=== PATIENT | male | born 1965 | race African-American/Black ===

== ENCOUNTER 2023-08-12 09:19 | Inpatient (IN) | payer OTHER ==
[~2023-08-12 09:19] MED LIST: CEFAZOLIN 2 GM VIAL ONE; Sodium Chloride 0.9% 100 ML BAG ONE; TETANUS AND DIPHTHERIA TOX/PF 0.5 ML DISP.SYRIN ONE
[2023-08-12] MEDS ORDERED: fentaNYL 50 mcg/mL 1 mL Vial ONE ×2 (09:21→10:39)
[2023-08-12] MEDS ORDERED: Calcium Chloride 1 GM/10 ML Abboject SYRINGE ONE (09:22)
[2023-08-12] MEDS ORDERED: Rocuronium Bromide 10 MG/ML (10ML VIAL) ONE ×3 (09:22→12:00)
[2023-08-12] MEDS ORDERED: Etomidate 40 MG (20 mL) VIAL ONE (09:22)
[2023-08-12 09:32] LABS: #Eosinphils 0.1 thou/uL (0.0-0.7); #Monocytes 0.5 thou/uL (0.11-0.59); %Basophils 0.3 % (0.0-1.0); %Eosinophils 0.6 % (0.0-10.0); %Lymphocytes 13.2 % (21.0-51.0); %Monocytes 5.4 % (0.0-10.0); %Neutrophils 79.4 % (42.0-75.0); Hematocrit 40.4 % (42.0-52.0); Hemoglobin 12.6 g/dL (14.0-18.0); Mean Corpuscular HGB CONC 31.2 g/dL (32.0-36.0); Mean Corpuscular Hemoglobin 32.2 pg (27.0-31.0); Mean Corpuscular Volume 103.3 fl (78.0-98.0); Mean Platelet Volume 9.5 fL (7.4-10.4); Platelet Count 198 10x3/uL (130-400); RBC Distribution Width 12.8 % (11.5-14.5); Red Blood Cell (RBC) Count 3.91 mill/uL (4.70-6.10); White Blood Cell (WBC) Count 10.1 10x3/uL (4.8-10.8)
[2023-08-12 09:48] LABS: ALT (SGPT) 11 U/L (8-55); AST (SGOT) 31 U/L (5-34); Albumin 3.8 g/dL (3.5-5.0); Alkaline Phosphatase 63 U/L (40-110); Anion Gap 14 mmol/L (10-20); BUN (Urea Nitrogen) 10 mg/dL (8.4-25.7); CK (CPK) 509 U/L (30-200); Calc. Creatinine Clearance 0 mL/min (70-130); Calcium 8.7 mg/dL (7.8-10.44); Carbon Dioxide 19 mmol/L (22-29); Chloride 109 mmol/L (98-107); Estimated GFR 62; Globulin 2.4 g/dL (2.4-3.5); Glucose 141 mg/dL (70-105); Potassium 4.2 mmol/L (3.5-5.1); Protein, Total 6.2 g/dL (6.0-8.3); Sodium 138 mmol/L (136-145)
[2023-08-12] MEDS ORDERED: Ondansetron PF 4 MG/2 ML Vial ONE (09:58)
[2023-08-12] MEDS ORDERED: Lidocaine 1% PF 5 ML VIAL ONE (09:58)
[2023-08-12] MEDS ORDERED: PROPOFOL 40 ML ONE (09:58)
[2023-08-12] MEDS ORDERED: fentaNYL PF 100 MCG/2 ML SYRINGE ONE (09:58)
[2023-08-12] MEDS ORDERED: SUGAMMADEX SODIUM 200 MG/2 ML VIAL ONE (09:58)
[2023-08-12] MEDS ORDERED: Dexamethasone 4 mg/ml Vial ONE (09:58)
[2023-08-12 10:00] LABS: INR-International Normal Ratio 1.2; PTT 34.3 sec (22.9-36.1); Prothrombin Time 15.7 sec (12.0-14.7)
[2023-08-12] MEDS ORDERED: Albumin 5% 500 ML ONE (10:00)
[2023-08-12] MEDS ORDERED: Vasopressin 20 UNITS/ML VIAL ONE (10:00)
[2023-08-12] MEDS ORDERED: Mannitol 12.5 GM/50 ML ONE (10:00)
[2023-08-12 10:05] LABS: Troponin I 0.016 ng/mL (< 0.028)
[2023-08-12] MEDS ORDERED: Sterile Water 20 ML ONE (10:08)
[2023-08-12 10:11] LABS: Actual Bicarbonate (HCO3a) 17.8 mEq/L (22-28); Analyzer IN Cardio ER; Base Excess (BEa) -5.9 mEq/L (-2.0 to +3.0); CO2 Tension 29.4 mmHg (35.0-45.0); Calcium, Ionized (arterial) 0.96 mmol/L (1.12-1.30); Hematocrit-ABG 36 % (42.0-52.0); Hemoglobin (Hb) 12.1 g/dL (14.0-18.0); O2 Tension (PaO2), arterial 271.3 mmHg (> 80.0); pH, Arterial 7.399 (7.35-7.45)
[2023-08-12] MEDS ORDERED: NOREPINEPHRINE 8 MG/250 ML-D5W 0 ML ONE (10:11)
[2023-08-12] MEDS ORDERED: Phenylephrine 10 MG/ML VIAL ONE (10:11)
[2023-08-12] MEDS ORDERED: ePHEDrine Sulfate 50 MG/10 ML VIAL ONE ×2 (10:12→12:25)
[2023-08-12 10:14] LABS: Puncture Site Right Radial
[2023-08-12] MEDS ORDERED: Labetalol HCl 100 MG/20 ML VIAL ONE (10:46)
[2023-08-12] MEDS ORDERED: Dextrose 5% in Water 1,000 ML IV PRN (10:55)
[2023-08-12] MEDS ORDERED: Glucagon 1 MG/ML KIT IM PRN (10:55)
[2023-08-12] MEDS ORDERED: Dextrose 50% Abboject 50 ML SYRINGE SLOW IVP PRN (10:55)
[2023-08-12] MEDS ORDERED: Acetaminophen 650 MG Suppository PR PRN (11:07)
[2023-08-12] MEDS ORDERED: Ondansetron ODT 4 MG TAB PO PRN (11:07)
[2023-08-12] MEDS ORDERED: Naloxone HCl 0.4 mg/ml Vial IVP PRN (11:07)
[2023-08-12] MEDS ORDERED: Ondansetron PF 4 MG/2 ML Vial IVP PRN (11:07)
[2023-08-12] MEDS ORDERED: Morphine 2 MG/ML VIAL SLOW IVP PRN (11:07)
[2023-08-12] MEDS ORDERED: Lidocaine 1% w/Epinephrine 1:100K 20 ML VIAL ONE (11:29)
[2023-08-12] MEDS ORDERED: Lidocaine 2% PF 5 ML VIAL ONE (11:29)
[2023-08-12] MEDS ORDERED: Fentanyl 100 MCG/2 ML VIAL ONE (11:35)
[2023-08-12] MEDS ORDERED: Midazolam HCl 2 mg/2 ml Vial ONE (12:00)
[2023-08-12 12:24] LABS: Lactic Acid 5.3 mmol/L (0.5-2.2)
[2023-08-12] MEDS ORDERED: CEFAZOLIN 1 GM VIAL ONE (12:41)
[2023-08-12] MEDS ORDERED: Bacitracin Zinc Ointment 30 gm TUBE ONE (12:56)
[2023-08-12] MEDS ORDERED: Iopamidol-370 76% 500 ML MDV (1 ML CHARGE) ONE (13:02)
[2023-08-12] MEDS: Lactated Ringer's 1,000 ML IV SCH ×2 (16:09→19:10)
[2023-08-12 16:55] LABS: ALT (SGPT) 17 U/L (8-55); AST (SGOT) 55 U/L (5-34); Albumin 3.8 g/dL (3.5-5.0); Alkaline Phosphatase 62 U/L (40-110); Anion Gap 19 mmol/L (10-20); BUN (Urea Nitrogen) 11 mg/dL (8.4-25.7); Bilirubin, Total 1.4 mg/dL (0.2-1.2); CK (CPK) 2432 U/L (30-200); Calc. Creatinine Clearance 65 mL/min (70-130); Calcium 9.2 mg/dL (7.8-10.44); Carbon Dioxide 17 mmol/L (22-29); Chloride 108 mmol/L (98-107); Estimated GFR 59; Globulin 2.3 g/dL (2.4-3.5); Glucose 87 mg/dL (70-105); Potassium 4.6 mmol/L (3.5-5.1); Protein, Total 6.1 g/dL (6.0-8.3); Sodium 139 mmol/L (136-145)
[2023-08-12 16:57] LABS: #Monocytes 1.9 thou/uL (0.11-0.59); #Neutrophils 16.1 thou/uL (1.40-6.50); %Basophils 0.2 % (0.0-1.0); %Eosinophils 0.1 % (0.0-10.0); %Lymphocytes 9.7 % (21.0-51.0); %Monocytes 9.3 % (0.0-10.0); %Neutrophils 80.2 % (42.0-75.0); Hematocrit 38.1 % (42.0-52.0); Hemoglobin 12.6 g/dL (14.0-18.0); Mean Corpuscular HGB CONC 33.1 g/dL (32.0-36.0); Mean Corpuscular Hemoglobin 31.3 pg (27.0-31.0); Mean Platelet Volume 9.9 fL (7.4-10.4); Platelet Count 174 10x3/uL (130-400); RBC Distribution Width 14.8 % (11.5-14.5); Red Blood Cell (RBC) Count 4.02 mill/uL (4.70-6.10)
[2023-08-12 17:02] LABS: White Blood Cell (WBC) Count 20.1 10x3/uL (4.8-10.8)
[2023-08-12 17:03] LABS: Mean Corpuscular Volume 94.8 fl (78.0-98.0)
[2023-08-12 17:09] LABS: Critical Call Chem-Lactate ICU.WS @1709; Lactic Acid 7.5 mmol/L (0.5-2.2)
[2023-08-12] MEDS ORDERED: Ventilator Sedation Protocol 1 EACH FS SCH (17:19)
[2023-08-12] MEDS ORDERED: Fentanyl BOLUS 250 ML IVPB PRN (17:30)
[2023-08-12] MEDS ORDERED: Propofol BOLUS 1,000 MG/100 ML VIAL IV PRN (17:30)
[2023-08-12] MEDS ORDERED: DISCONTINUE PREVIOUS NARCOTIC PAIN MEDICATIONS AND BENZODIAZEPINES FS SCH (17:30)
[2023-08-12] MEDS: Morphine 2 MG/ML VIAL SLOW IVP PRN (18:43)
[2023-08-12] MEDS: Fentanyl CADD 100 ML IV SCH (19:07)
[2023-08-12 20:22] LABS: ALT (SGPT) 17 U/L (8-55); AST (SGOT) 69 U/L (5-34); Albumin 3.8 g/dL (3.5-5.0); Alkaline Phosphatase 62 U/L (40-110); Anion Gap 17 mmol/L (10-20); BUN (Urea Nitrogen) 13 mg/dL (8.4-25.7); Bilirubin, Total 1.6 mg/dL (0.2-1.2); Calc. Creatinine Clearance 58 mL/min (70-130); Calcium 9.4 mg/dL (7.8-10.44); Carbon Dioxide 18 mmol/L (22-29); Chloride 105 mmol/L (98-107); Estimated GFR 51; Globulin 2.5 g/dL (2.4-3.5); Glucose 80 mg/dL (70-105); Potassium 4.2 mmol/L (3.5-5.1); Protein, Total 6.3 g/dL (6.0-8.3); Sodium 136 mmol/L (136-145)
[2023-08-12 20:24] LABS: Lactic Acid 7.9 mmol/L (0.5-2.2)
[2023-08-12] MEDS: Sodium Chloride 0.9% 500 ML IV SCH (21:19)
[2023-08-12] MEDS: Lorazepam 2 MG/ML VIAL SLOW IVP PRN (21:19)
[2023-08-12] MEDS: Famotidine/PF 20 mg/2ml Vial SLOW IVP SCH (21:29)
[2023-08-12 21:49] LABS: Actual Bicarbonate (HCO3a) 20.3 mEq/L (22-28); Base Excess (BEa) -2.5 mEq/L (-2.0 to +3.0); CO2 Tension 28.5 mmHg (35.0-45.0); Calcium, Ionized (arterial) 1.14 mmol/L (1.12-1.30); Carboxyhemoglobin (COHb) 0.4 gm% (0.0-3.0); Hematocrit-ABG 31 % (42.0-52.0); Hemoglobin (Hb) 10.7 g/dL (14.0-18.0); O2 Tension (PaO2), arterial 92.9 mmHg (> 80.0); Potassium - ABG Lab 3.59 mmol/L (3.70-5.30)
[2023-08-12 21:51] LABS: ALV-art Gradient 227.975 mmHg (0-20); Puncture Site LRA
[2023-08-12 21:55] LABS: Hematocrit 32.2 % (42.0-52.0); Hemoglobin 10.8 g/dL (14.0-18.0); Mean Corpuscular HGB CONC 33.5 g/dL (32.0-36.0); Mean Corpuscular Volume 95.3 fl (78.0-98.0); Mean Platelet Volume 9.9 fL (7.4-10.4); Platelet Count 137 10x3/uL (130-400); RBC Distribution Width 15.3 % (11.5-14.5); Red Blood Cell (RBC) Count 3.38 mill/uL (4.70-6.10); White Blood Cell (WBC) Count 12.6 10x3/uL (4.8-10.8)
[2023-08-12] MEDS: NOREPINEPHRINE 8 MG/250 ML-D5W 250 ML ONE (23:35)
[2023-08-13] MEDS: NOREPINEPHRINE 8 MG/250 ML-D5W 250 ML IVPB SCH (00:19)
[2023-08-13] MEDS ORDERED: Sodium Chloride 0.9% 1,000 ML IV SCH (01:15)
[2023-08-13] MEDS: NOREPINEPHRINE 8 MG/250 ML-D5W 250 ML ONE (01:20)
[2023-08-13 02:05] LABS: #Monocytes 1.2 thou/uL (0.11-0.59); #Neutrophils 9.4 thou/uL (1.40-6.50); %Basophils 0.2 % (0.0-1.0); %Eosinophils 0.1 % (0.0-10.0); %Lymphocytes 10.4 % (21.0-51.0); Hematocrit 32.1 % (42.0-52.0); Mean Corpuscular HGB CONC 34.3 g/dL (32.0-36.0); Mean Corpuscular Hemoglobin 31.1 pg (27.0-31.0); Mean Platelet Volume 9.8 fL (7.4-10.4); Platelet Count 151 10x3/uL (130-400); RBC Distribution Width 15.8 % (11.5-14.5); Red Blood Cell (RBC) Count 3.54 mill/uL (4.70-6.10); White Blood Cell (WBC) Count 11.9 10x3/uL (4.8-10.8)
[2023-08-13 02:15] LABS: Mean Corpuscular Volume 90.7 fl (78.0-98.0)
[2023-08-13 02:47] LABS: ALT (SGPT) 14 U/L (8-55); AST (SGOT) 62 U/L (5-34); Albumin 3.1 g/dL (3.5-5.0); Alkaline Phosphatase 51 U/L (40-110); Anion Gap 15 mmol/L (10-20); BUN (Urea Nitrogen) 17 mg/dL (8.4-25.7); Bilirubin, Total 1.6 mg/dL (0.2-1.2); CK (CPK) 2734 U/L (30-200); Calc. Creatinine Clearance 55 mL/min (70-130); Calcium 8.5 mg/dL (7.8-10.44); Carbon Dioxide 19 mmol/L (22-29); Chloride 111 mmol/L (98-107); Estimated GFR 48; Globulin 2.1 g/dL (2.4-3.5); Glucose 122 mg/dL (70-105); Potassium 3.8 mmol/L (3.5-5.1); Protein, Total 5.2 g/dL (6.0-8.3); Sodium 141 mmol/L (136-145)
[2023-08-13 05:17] LABS: Hematocrit 32.2 % (42.0-52.0); Mean Corpuscular HGB CONC 34.2 g/dL (32.0-36.0); Mean Corpuscular Volume 90.7 fl (78.0-98.0); Mean Platelet Volume 9.7 fL (7.4-10.4); Platelet Count 151 10x3/uL (130-400); RBC Distribution Width 15.8 % (11.5-14.5); Red Blood Cell (RBC) Count 3.55 mill/uL (4.70-6.10); White Blood Cell (WBC) Count 12.9 10x3/uL (4.8-10.8)
[2023-08-13 11:10] LABS: Magnesium 1.6 mg/dL (1.6-2.6)
[2023-08-14] MEDS: Propofol 1,000 MG/100 ML VIAL IV PRN (01:00)
[2023-08-14 05:38] LABS: ALT (SGPT) 13 U/L (8-55); AST (SGOT) 49 U/L (5-34); Albumin 2.7 g/dL (3.5-5.0); Alkaline Phosphatase 39 U/L (40-110); Anion Gap 11 mmol/L (10-20); BUN (Urea Nitrogen) 18 mg/dL (8.4-25.7); Bilirubin, Total 1.3 mg/dL (0.2-1.2); Calc. Creatinine Clearance 58 mL/min (70-130); Calcium 7.7 mg/dL (7.8-10.44); Carbon Dioxide 22 mmol/L (22-29); Chloride 111 mmol/L (98-107); Estimated GFR 48; Glucose 112 mg/dL (70-105); Potassium 3.7 mmol/L (3.5-5.1); Protein, Total 4.7 g/dL (6.0-8.3); Sodium 140 mmol/L (136-145)
[2023-08-14 06:23] LABS: #Monocytes 0.9 thou/uL (0.11-0.59); #Neutrophils 6.3 thou/uL (1.40-6.50); %Basophils 0.2 % (0.0-1.0); %Eosinophils 0.2 % (0.0-10.0); %Lymphocytes 12.5 % (21.0-51.0); %Monocytes 11.2 % (0.0-10.0); %Neutrophils 75.5 % (42.0-75.0); Hematocrit 27.2 % (42.0-52.0); Hemoglobin 8.6 g/dL (14.0-18.0); Mean Corpuscular HGB CONC 31.6 g/dL (32.0-36.0); Mean Corpuscular Hemoglobin 30.2 pg (27.0-31.0); Mean Corpuscular Volume 95.4 fl (78.0-98.0); Mean Platelet Volume 10.2 fL (7.4-10.4); Platelet Count 94 10x3/uL (130-400); RBC Distribution Width 15.9 % (11.5-14.5); Red Blood Cell (RBC) Count 2.85 mill/uL (4.70-6.10); White Blood Cell (WBC) Count 8.3 10x3/uL (4.8-10.8)
[2023-08-14] MEDS: Acetaminophen 325 MG TAB PO PRN (08:05)
[2023-08-14] MEDS ORDERED: Dexmedetomidine In 0.9 % NaCl 100 ML IVPB SCH (11:00)
[2023-08-15 05:56] LABS: #Monocytes 0.9 thou/uL (0.11-0.59); #Neutrophils 4.4 thou/uL (1.40-6.50); %Basophils 0.2 % (0.0-1.0); %Eosinophils 0.3 % (0.0-10.0); %Lymphocytes 11.1 % (21.0-51.0); %Monocytes 15.5 % (0.0-10.0); %Neutrophils 72.4 % (42.0-75.0); Hematocrit 23.3 % (42.0-52.0); Hemoglobin 7.8 g/dL (14.0-18.0); Mean Corpuscular HGB CONC 33.5 g/dL (32.0-36.0); Mean Corpuscular Hemoglobin 31.2 pg (27.0-31.0); Mean Corpuscular Volume 93.2 fl (78.0-98.0); Mean Platelet Volume 10.4 fL (7.4-10.4); Platelet Count 83 10x3/uL (130-400); RBC Distribution Width 15.1 % (11.5-14.5); White Blood Cell (WBC) Count 6.1 10x3/uL (4.8-10.8)
[2023-08-15 06:20] LABS: ALT (SGPT) 12 U/L (8-55); AST (SGOT) 43 U/L (5-34); Albumin 2.6 g/dL (3.5-5.0); Alkaline Phosphatase 38 U/L (40-110); Anion Gap 12 mmol/L (10-20); BUN (Urea Nitrogen) 16 mg/dL (8.4-25.7); Bilirubin, Total 1.5 mg/dL (0.2-1.2); Calc. Creatinine Clearance 82 mL/min (70-130); Calcium 7.9 mg/dL (7.8-10.44); Carbon Dioxide 20 mmol/L (22-29); Chloride 112 mmol/L (98-107); Estimated GFR 70; Globulin 2.3 g/dL (2.4-3.5); Glucose 97 mg/dL (70-105); Potassium 3.6 mmol/L (3.5-5.1); Protein, Total 4.9 g/dL (6.0-8.3); Sodium 140 mmol/L (136-145)
[2023-08-15 13:39] LABS: #Neutrophils 4.8 thou/uL (1.40-6.50); %Basophils 0.3 % (0.0-1.0); %Eosinophils 0.3 % (0.0-10.0); %Lymphocytes 9.8 % (21.0-51.0); %Monocytes 15.6 % (0.0-10.0); %Neutrophils 73.5 % (42.0-75.0); Hematocrit 27.1 % (42.0-52.0); Hemoglobin 8.7 g/dL (14.0-18.0); Mean Corpuscular HGB CONC 32.1 g/dL (32.0-36.0); Mean Corpuscular Hemoglobin 30.3 pg (27.0-31.0); Mean Corpuscular Volume 94.4 fl (78.0-98.0); Mean Platelet Volume 10.2 fL (7.4-10.4); RBC Distribution Width 14.9 % (11.5-14.5); Red Blood Cell (RBC) Count 2.87 mill/uL (4.70-6.10); White Blood Cell (WBC) Count 6.5 10x3/uL (4.8-10.8)
[2023-08-15 13:40] LABS: Platelet Count 85 10x3/uL (130-400)
[2023-08-15] MEDS: Ampicillin/Sulbactam 3 GM in Sodium Chloride 0.9% 100 ML IVPB SCH (14:30)
[2023-08-15] MEDS: Lactated Ringer's 1,000 ML IV SCH (16:11)
[2023-08-15 20:25] LABS: Platelet Count 94 10x3/uL (130-400)
[2023-08-15 20:38] LABS: Fibrinogen 537 mg/dL (253-463)
[2023-08-15 20:39] LABS: INR-International Normal Ratio 1.4; PTT 49.6 sec (22.9-36.1); Prothrombin Time 16.9 sec (12.0-14.7)
[2023-08-15] MEDS: Metoprolol Tartrate 25 MG TAB PO SCH (20:46)
[2023-08-16 04:47] LABS: Hematocrit 20.6 % (42.0-52.0); Manual Diff?? YES; Mean Corpuscular Hemoglobin 31.4 pg (27.0-31.0); Mean Corpuscular Volume 92.4 fl (78.0-98.0); Platelet Count 99 10x3/uL (130-400); RBC Distribution Width 14.6 % (11.5-14.5); Red Blood Cell (RBC) Count 2.23 mill/uL (4.70-6.10); White Blood Cell (WBC) Count 5.6 10x3/uL (4.8-10.8)
[2023-08-16 05:28] LABS: Delete Auto Diff?? YES
[2023-08-16 05:40] LABS: ALT (SGPT) 15 U/L (8-55); AST (SGOT) 44 U/L (5-34); Albumin 2.5 g/dL (3.5-5.0); Alkaline Phosphatase 33 U/L (40-110); Anion Gap 12 mmol/L (10-20); BUN (Urea Nitrogen) 18 mg/dL (8.4-25.7); Bilirubin, Total 1.3 mg/dL (0.2-1.2); Calc. Creatinine Clearance 88 mL/min (70-130); Calcium 7.7 mg/dL (7.8-10.44); Carbon Dioxide 20 mmol/L (22-29); Chloride 112 mmol/L (98-107); Estimated GFR 75; Globulin 2.3 g/dL (2.4-3.5); Glucose 131 mg/dL (70-105); Potassium 3.7 mmol/L (3.5-5.1); Protein, Total 4.8 g/dL (6.0-8.3); Sodium 140 mmol/L (136-145)
[2023-08-16 06:38] LABS: Anisocytosis SLIGHT = 6-15 cells HPF (0-5); Band 10 % (5-11); Basophilic Stippling SLIGHT = 1-2 cells HPF (None Seen); CellaVision Operator ID LAB.JMM; Eosinophils 1 % (0-10); Large Platelets 2.9 % (0-5); Lymphocytes 10 % (21-51); Macrocytosis SLIGHT = 6-15 cells HPF (0-5); Monocytes 11 % (0-10); Neutrophil 69 % (42-75); Nucleated RBC (Manual Ct) 1 % (0); Platelet Adequacy Comment Platelets Decreased; Polychromasia SLIGHT = 2-3 cells HPF (0-2); Smudge Cells 13.3 %; Total Cell Count 105
[2023-08-16 11:07] LABS: Hematocrit 21.7 % (42.0-52.0); Hemoglobin 7.1 g/dL (14.0-18.0); Mean Corpuscular HGB CONC 32.7 g/dL (32.0-36.0); Mean Corpuscular Volume 94.8 fl (78.0-98.0); Mean Platelet Volume 10.7 fL (7.4-10.4); Platelet Count 111 10x3/uL (130-400); RBC Distribution Width 14.8 % (11.5-14.5); Red Blood Cell (RBC) Count 2.29 mill/uL (4.70-6.10); White Blood Cell (WBC) Count 4.3 10x3/uL (4.8-10.8)
[2023-08-16] MEDS: Haloperidol Lactate 5 MG/ML VIAL IM PRN (17:44)
[2023-08-16] MEDS: Furosemide 40 MG (4 mL) VIAL SLOW IVP SCH (18:15)
[2023-08-17 04:26] LABS: #Eosinphils 0.1 thou/uL (0.0-0.7); #Monocytes 0.7 thou/uL (0.11-0.59); #Neutrophils 3.9 thou/uL (1.40-6.50); %Basophils 0.2 % (0.0-1.0); %Lymphocytes 9.9 % (21.0-51.0); %Monocytes 12.6 % (0.0-10.0); %Neutrophils 74.9 % (42.0-75.0); Hemoglobin 7.5 g/dL (14.0-18.0); Mean Corpuscular HGB CONC 34.1 g/dL (32.0-36.0); Mean Corpuscular Hemoglobin 31.5 pg (27.0-31.0); Mean Corpuscular Volume 92.4 fl (78.0-98.0); Mean Platelet Volume 10.2 fL (7.4-10.4); Platelet Count 123 10x3/uL (130-400); RBC Distribution Width 15.1 % (11.5-14.5); Red Blood Cell (RBC) Count 2.38 mill/uL (4.70-6.10); White Blood Cell (WBC) Count 5.2 10x3/uL (4.8-10.8)
[2023-08-17 04:45] LABS: ALT (SGPT) 20 U/L (8-55); AST (SGOT) 68 U/L (5-34); Albumin 2.5 g/dL (3.5-5.0); Alkaline Phosphatase 33 U/L (40-110); Anion Gap 11 mmol/L (10-20); BUN (Urea Nitrogen) 18 mg/dL (8.4-25.7); Bilirubin, Total 1.3 mg/dL (0.2-1.2); Calc. Creatinine Clearance 87 mL/min (70-130); Calcium 7.6 mg/dL (7.8-10.44); Carbon Dioxide 24 mmol/L (22-29); Chloride 111 mmol/L (98-107); Estimated GFR 74; Globulin 2.4 g/dL (2.4-3.5); Glucose 125 mg/dL (70-105); Potassium 3.3 mmol/L (3.5-5.1); Protein, Total 4.9 g/dL (6.0-8.3); Sodium 143 mmol/L (136-145)
[2023-08-17] MEDS ORDERED: Electrolyte Replacement Protocol FS SCH (06:50)
[2023-08-17 07:26] LABS: Magnesium 1.5 mg/dL (1.6-2.6)
[2023-08-17] MEDS: Magnesium 2 GM/50 ML(in water) 2 GM in Premix 1 BAG IVPB SCH (08:24)
[2023-08-17] MEDS: Potassium Chloride 20 MEQ in Premix 1 BAG IVPB SCH (08:25)
[2023-08-17] MEDS ORDERED: Magnesium 2 GM/50 ML(in water) 2 GM in Premix 1 BAG IVPB SCH (11:15)
[2023-08-17] MEDS: Dexmedetomidine 1,000 MCG in NS 250 mL IVPB SCH (14:42)
[2023-08-17] MEDS: Carvedilol 3.125 MG TAB PER TUBE SCH (16:02)
[2023-08-18] MEDS: Lactulose 20 GM (30 mL) UDCUP PO SCH (07:52)
[2023-08-18 08:28] LABS: Hematocrit 23.5 % (42.0-52.0); Hemoglobin 7.9 g/dL (14.0-18.0); Manual Diff?? YES; Mean Corpuscular HGB CONC 33.6 g/dL (32.0-36.0); Mean Corpuscular Volume 92.2 fl (78.0-98.0); Mean Platelet Volume 10.1 fL (7.4-10.4); Platelet Count 195 10x3/uL (130-400); RBC Distribution Width 15.4 % (11.5-14.5); Red Blood Cell (RBC) Count 2.55 mill/uL (4.70-6.10); White Blood Cell (WBC) Count 6.6 10x3/uL (4.8-10.8)
[2023-08-18 08:29] LABS: Delete Auto Diff?? YES
[2023-08-18 08:49] LABS: Anion Gap 10 mmol/L (10-20); BUN (Urea Nitrogen) 19 mg/dL (8.4-25.7); Calc. Creatinine Clearance 90 mL/min (70-130); Calcium 7.9 mg/dL (7.8-10.44); Carbon Dioxide 24 mmol/L (22-29); Chloride 114 mmol/L (98-107); Estimated GFR 75; Glucose 146 mg/dL (70-105); Potassium 3.8 mmol/L (3.5-5.1); Sodium 144 mmol/L (136-145)
[2023-08-18 08:57] LABS: Band 4 % (5-11); Burr Cells SLIGHT = 2-5 cells HPF (0-1); CellaVision Operator ID LAB.KW3; Large Platelets 12.5 % (0-5); Lymphocytes 13 % (21-51); Monocytes 9 % (0-10); Neutrophil 74 % (42-75); Nucleated RBC (Manual Ct) 1 % (0); Platelet Adequacy Comment Platelets Normal; Polychromasia SLIGHT = 2-3 cells HPF (0-2); Reactive Lymphocytes 1 % (0-10); Schistocytes SLIGHT = 2-5 cells HPF (0-1); Total Cell Count 104
[2023-08-18] MEDS: Furosemide 40 MG (4 mL) VIAL SLOW IVP SCH (09:04)
[2023-08-18] MEDS: Furosemide 40 MG (4 mL) VIAL ONE (09:23)
[2023-08-18 14:18] LABS: Hematocrit 23.5 % (42.0-52.0); Hemoglobin 7.7 g/dL (14.0-18.0); Manual Diff?? YES; Mean Corpuscular HGB CONC 32.8 g/dL (32.0-36.0); Mean Corpuscular Volume 94.8 fl (78.0-98.0); Mean Platelet Volume 9.7 fL (7.4-10.4); Platelet Count 228 10x3/uL (130-400); RBC Distribution Width 15.7 % (11.5-14.5); Red Blood Cell (RBC) Count 2.48 mill/uL (4.70-6.10); White Blood Cell (WBC) Count 7.4 10x3/uL (4.8-10.8)
[2023-08-18 14:20] LABS: Delete Auto Diff?? YES
[2023-08-18 14:43] LABS: Band 4 % (5-11); CellaVision Operator ID LAB.MJL; Eosinophils 1 % (0-10); Large Platelets 3.4 % (0-5); Lymphocytes 15 % (21-51); Monocytes 11 % (0-10); Neutrophil 68 % (42-75); Nucleated RBC (Manual Ct) 1 % (0); Ovalocytes SLIGHT = 2-5 cells HPF (0-1); Platelet Adequacy Comment Platelets Normal; Polychromasia SLIGHT = 2-3 cells HPF (0-2); Reactive Lymphocytes 1 % (0-10); Total Cell Count 117
[2023-08-19 05:19] LABS: Hematocrit 24.5 % (42.0-52.0); Hemoglobin 7.8 g/dL (14.0-18.0); Manual Diff?? YES; Mean Corpuscular HGB CONC 31.8 g/dL (32.0-36.0); Mean Corpuscular Hemoglobin 30.4 pg (27.0-31.0); Mean Corpuscular Volume 95.3 fl (78.0-98.0); Mean Platelet Volume 10.4 fL (7.4-10.4); Platelet Count 262 10x3/uL (130-400); RBC Distribution Width 15.5 % (11.5-14.5); Red Blood Cell (RBC) Count 2.57 mill/uL (4.70-6.10); White Blood Cell (WBC) Count 7.7 10x3/uL (4.8-10.8)
[2023-08-19 05:20] LABS: Delete Auto Diff?? YES
[2023-08-19 05:37] LABS: Anion Gap 15 mmol/L (10-20); BUN (Urea Nitrogen) 23 mg/dL (8.4-25.7); Calc. Creatinine Clearance 95 mL/min (70-130); Calcium 7.7 mg/dL (7.8-10.44); Carbon Dioxide 20 mmol/L (22-29); Chloride 113 mmol/L (98-107); Estimated GFR 81; Glucose 146 mg/dL (70-105); Potassium 3.9 mmol/L (3.5-5.1); Sodium 144 mmol/L (136-145)
[2023-08-19 05:52] LABS: Band 11 % (5-11); CellaVision Operator ID LAB.CLH1; Hypochromia SLIGHT = 6-15 cells HPF (0-5); Large Platelets 11.4 % (0-5); Lymphocytes 9 % (21-51); Monocytes 11 % (0-10); Neutrophil 69 % (42-75); Platelet Adequacy Comment Platelets Normal; Polychromasia SLIGHT = 2-3 cells HPF (0-2); Total Cell Count 35
[2023-08-19] MEDS: Carvedilol 3.125 MG TAB PO SCH ×2 (09:22→20:05)
[2023-08-19] MEDS: Propofol 1,000 MG/100 ML VIAL IV ONE (20:29)
[2023-08-20 06:49] LABS: #Basophils 0.1 thou/uL (0.0-0.2); #Eosinphils 0.2 thou/uL (0.0-0.7); #Neutrophils 7.3 thou/uL (1.40-6.50); %Basophils 0.5 % (0.0-1.0); %Eosinophils 2.3 % (0.0-10.0); %Lymphocytes 11.6 % (21.0-51.0); %Monocytes 9.8 % (0.0-10.0); %Neutrophils 71.4 % (42.0-75.0); Hematocrit 25.3 % (42.0-52.0); Hemoglobin 8.1 g/dL (14.0-18.0); Mean Corpuscular Hemoglobin 30.7 pg (27.0-31.0); Mean Corpuscular Volume 95.8 fl (78.0-98.0); Mean Platelet Volume 9.6 fL (7.4-10.4); Platelet Count 356 10x3/uL (130-400); RBC Distribution Width 15.8 % (11.5-14.5); Red Blood Cell (RBC) Count 2.64 mill/uL (4.70-6.10); White Blood Cell (WBC) Count 10.2 10x3/uL (4.8-10.8)
[2023-08-20 07:22] LABS: Anion Gap 11 mmol/L (10-20); BUN (Urea Nitrogen) 24 mg/dL (8.4-25.7); Calc. Creatinine Clearance 90 mL/min (70-130); Calcium 8.2 mg/dL (7.8-10.44); Carbon Dioxide 24 mmol/L (22-29); Chloride 114 mmol/L (98-107); Estimated GFR 74; Glucose 139 mg/dL (70-105); Potassium 3.7 mmol/L (3.5-5.1); Sodium 145 mmol/L (136-145)
[2023-08-20] MEDS: Propofol 1,000 MG/100 ML VIAL IV PRN (08:24)
[2023-08-20] MEDS: Furosemide 40 MG (4 mL) VIAL SLOW IVP SCH (09:56)
[2023-08-21 06:45] LABS: #Basophils 0.1 thou/uL (0.0-0.2); #Eosinphils 0.3 thou/uL (0.0-0.7); #Monocytes 1.1 thou/uL (0.11-0.59); #Neutrophils 10.6 thou/uL (1.40-6.50); %Basophils 0.4 % (0.0-1.0); %Eosinophils 2.1 % (0.0-10.0); %Lymphocytes 8.3 % (21.0-51.0); %Monocytes 8.2 % (0.0-10.0); %Neutrophils 76.6 % (42.0-75.0); Hematocrit 27.6 % (42.0-52.0); Hemoglobin 8.7 g/dL (14.0-18.0); Mean Corpuscular HGB CONC 31.5 g/dL (32.0-36.0); Mean Corpuscular Volume 98.2 fl (78.0-98.0); Mean Platelet Volume 9.7 fL (7.4-10.4); Platelet Count 414 10x3/uL (130-400); RBC Distribution Width 16.1 % (11.5-14.5); Red Blood Cell (RBC) Count 2.81 mill/uL (4.70-6.10); White Blood Cell (WBC) Count 13.9 10x3/uL (4.8-10.8)
[2023-08-21 07:09] LABS: Anion Gap 13 mmol/L (10-20); BUN (Urea Nitrogen) 28 mg/dL (8.4-25.7); Calc. Creatinine Clearance 83 mL/min (70-130); Calcium 8.5 mg/dL (7.8-10.44); Carbon Dioxide 23 mmol/L (22-29); Chloride 114 mmol/L (98-107); Estimated GFR 67; Glucose 136 mg/dL (70-105); Potassium 3.7 mmol/L (3.5-5.1); Sodium 146 mmol/L (136-145)
[2023-08-21] MEDS: Carvedilol 6.25 MG TAB PO SCH (14:12)
[2023-08-21] MEDS ORDERED: Carvedilol 3.125 MG TAB PO SCH (15:00)
[2023-08-22 05:03] LABS: #Basophils 0.1 thou/uL (0.0-0.2); #Eosinphils 0.2 thou/uL (0.0-0.7); #Monocytes 1.2 thou/uL (0.11-0.59); #Neutrophils 12.6 thou/uL (1.40-6.50); %Basophils 0.4 % (0.0-1.0); %Eosinophils 1.1 % (0.0-10.0); %Lymphocytes 7.4 % (21.0-51.0); %Monocytes 7.4 % (0.0-10.0); %Neutrophils 79.1 % (42.0-75.0); Hematocrit 26.5 % (42.0-52.0); Hemoglobin 8.2 g/dL (14.0-18.0); Mean Corpuscular HGB CONC 30.9 g/dL (32.0-36.0); Mean Corpuscular Volume 97.1 fl (78.0-98.0); Mean Platelet Volume 9.8 fL (7.4-10.4); Platelet Count 487 10x3/uL (130-400); RBC Distribution Width 16.6 % (11.5-14.5); Red Blood Cell (RBC) Count 2.73 mill/uL (4.70-6.10); White Blood Cell (WBC) Count 15.9 10x3/uL (4.8-10.8)
[2023-08-22 05:23] LABS: INR-International Normal Ratio 1.2; PTT 40.4 sec (22.9-36.1); Prothrombin Time 14.8 sec (12.0-14.7)
[2023-08-22 05:29] LABS: Anion Gap 14 mmol/L (10-20); BUN (Urea Nitrogen) 30 mg/dL (8.4-25.7); Calc. Creatinine Clearance 85 mL/min (70-130); Calcium 8.5 mg/dL (7.8-10.44); Carbon Dioxide 22 mmol/L (22-29); Chloride 115 mmol/L (98-107); Estimated GFR 71; Glucose 121 mg/dL (70-105); Potassium 3.6 mmol/L (3.5-5.1); Sodium 147 mmol/L (136-145)
[2023-08-22] MEDS ORDERED: EPINEPHrine 1 MG/ML VIAL ONE (06:27)
[2023-08-22] MEDS ORDERED: Bupivacaine 0.25% HCL 30 ML VIAL ONE (06:27)
[2023-08-22] MEDS ORDERED: Midazolam HCl 5 mg/ml Vial ONE (06:35)
[2023-08-22] MEDS ORDERED: fentaNYL PF 100 MCG/2 ML SYRINGE ONE ×2 (06:35→09:09)
[2023-08-22] MEDS ORDERED: Sodium Chloride 0.9% 100 ML ONE (06:40)
[2023-08-22] MEDS ORDERED: Phenylephrine 10 MG/ML VIAL ONE (06:42)
[2023-08-22] MEDS ORDERED: Rocuronium Bromide 50 MG/5 ML VIAL ONE (06:46)
[2023-08-22] MEDS ORDERED: Rocuronium Bromide 10 MG/ML (10ML VIAL) ONE (08:15)
[2023-08-22] MEDS: Ipratropium/Albuterol 3 ML NEB NEB SCH (10:39)
[2023-08-22] MEDS: Vancomycin (BATCH) 2 GM in Premix 1 BAG IVPB SCH (11:13)
[2023-08-22] MEDS: hydrALAZINE 20 MG/ML VIAL SLOW IVP PRN (17:58)
[2023-08-22] MEDS: Metoprolol Tartrate 5 MG (5 mL) VIAL IVP SCH (20:32)
[2023-08-22] MEDS: Vancomycin 1 GM in Premix 1 BAG IVPB SCH (22:37)
[2023-08-23 06:19] LABS: #Eosinphils 0.2 thou/uL (0.0-0.7); #Monocytes 1.2 thou/uL (0.11-0.59); #Neutrophils 15.7 thou/uL (1.40-6.50); %Basophils 0.2 % (0.0-1.0); %Eosinophils 0.9 % (0.0-10.0); %Monocytes 6.2 % (0.0-10.0); %Neutrophils 84.5 % (42.0-75.0); Hematocrit 24.8 % (42.0-52.0); Hemoglobin 7.6 g/dL (14.0-18.0); Mean Corpuscular HGB CONC 30.6 g/dL (32.0-36.0); Mean Corpuscular Hemoglobin 30.6 pg (27.0-31.0); Mean Platelet Volume 9.8 fL (7.4-10.4); Platelet Count 449 10x3/uL (130-400); RBC Distribution Width 16.9 % (11.5-14.5); Red Blood Cell (RBC) Count 2.48 mill/uL (4.70-6.10); White Blood Cell (WBC) Count 18.6 10x3/uL (4.8-10.8)
[2023-08-23 06:30] LABS: Vancomycin, Random 16.1 ug/mL (See Comment)
[2023-08-23 06:33] LABS: Anion Gap 14 mmol/L (10-20); BUN (Urea Nitrogen) 35 mg/dL (8.4-25.7); Calc. Creatinine Clearance 69 mL/min (70-130); Calcium 8.3 mg/dL (7.8-10.44); Carbon Dioxide 22 mmol/L (22-29); Chloride 115 mmol/L (98-107); Estimated GFR 55; Glucose 120 mg/dL (70-105); Potassium 3.6 mmol/L (3.5-5.1); Sodium 147 mmol/L (136-145)
[2023-08-23] MEDS ORDERED: Lactated Ringer's 1,000 ML IV SCH (09:00)
[2023-08-23] MEDS: Scopolamine 1 mg/72 hour Patch TOP SCH (10:32)
[2023-08-23] MEDS: LORazepam 2 MG/ML SYR.(CARPUJECT) IVP PRN (10:40)
[2023-08-23] MEDS: Dextrose 5 %-0.45 % NaCl 1,000 ML IV SCH (11:29)
[2023-08-23] MEDS: Carvedilol 6.25 MG TAB PO SCH (16:11)
[2023-08-23] MEDS: Morphine 2 MG/ML VIAL SLOW IVP PRN (18:11)
[2023-08-23] MEDS ORDERED: Vancomycin 1.5 GM in Sodium Chloride 0.9% 250 ML 300 ML IVPB SCH (22:00)
[2023-08-23] MEDS: Vancomycin (BATCH) 1.5 GM in Premix 1 BAG IVPB SCH (22:05)
[2023-08-24 05:47] LABS: #Eosinphils 0.1 thou/uL (0.0-0.7); #Monocytes 0.7 thou/uL (0.11-0.59); #Neutrophils 10.5 thou/uL (1.40-6.50); %Basophils 0.2 % (0.0-1.0); %Eosinophils 1.1 % (0.0-10.0); %Lymphocytes 6.8 % (21.0-51.0); %Monocytes 5.3 % (0.0-10.0); %Neutrophils 84.7 % (42.0-75.0); Hematocrit 21.9 % (42.0-52.0); Hemoglobin 6.7 g/dL (14.0-18.0); Mean Corpuscular HGB CONC 30.6 g/dL (32.0-36.0); Mean Corpuscular Hemoglobin 30.5 pg (27.0-31.0); Mean Corpuscular Volume 99.5 fl (78.0-98.0); Mean Platelet Volume 9.6 fL (7.4-10.4); Platelet Count 455 10x3/uL (130-400); RBC Distribution Width 16.9 % (11.5-14.5); White Blood Cell (WBC) Count 12.4 10x3/uL (4.8-10.8)
[2023-08-24 06:14] LABS: Vancomycin, Random 19.5 ug/mL (See Comment)
[2023-08-24 06:17] LABS: Anion Gap 10 mmol/L (10-20); BUN (Urea Nitrogen) 37 mg/dL (8.4-25.7); Calc. Creatinine Clearance 88 mL/min (70-130); Calcium 7.9 mg/dL (7.8-10.44); Carbon Dioxide 23 mmol/L (22-29); Chloride 117 mmol/L (98-107); Estimated GFR 71; Glucose 137 mg/dL (70-105); Potassium 3.2 mmol/L (3.5-5.1); Sodium 147 mmol/L (136-145)
[2023-08-24] MEDS: Potassium Chloride 20 MEQ in Premix 1 BAG IVPB SCH (08:35)
[2023-08-24 09:57] LABS: Magnesium 2.8 mg/dL (1.6-2.6)
[2023-08-24] MEDS: Haloperidol Lactate 5 MG/ML VIAL SLOW IVP PRN (10:13)
[2023-08-24] MEDS: Piperacillin/Tazobactam 3.375 GM in Sodium Chloride 0.9% 100 ML IVPB SCH ×2 (10:48→15:41)
[2023-08-24] MEDS: fentaNYL 50 mcg/mL 1 mL Vial SLOW IVP PRN (11:46)
[2023-08-24] MEDS ORDERED: Fentanyl CADD 100 ML IV SCH (12:00)
[2023-08-24] MEDS ORDERED: Propofol BOLUS 1,000 MG/100 ML VIAL IV PRN (12:00)
[2023-08-24] MEDS ORDERED: Fentanyl BOLUS 250 ML IVPB PRN (12:00)
[2023-08-24] MEDS ORDERED: Lorazepam 2 MG/ML VIAL SLOW IVP PRN (12:00)
[2023-08-24] MEDS: Propofol 1,000 MG/100 ML VIAL IV PRN (12:01)
[2023-08-24] MEDS ORDERED: Vancomycin 1 GM in Sodium Chloride 0.9% 250 ML 250 ML IVPB SCH (13:00)
[2023-08-24] MEDS: Vancomycin 1 GM in Premix 1 BAG IVPB SCH (13:34)
[2023-08-24] MEDS: Morphine 2 MG/ML VIAL SLOW IVP PRN (13:35)
[2023-08-24] MEDS: Ventilator Sedation Protocol 1 EACH FS ONE (17:24)
[2023-08-24 20:30] LABS: Hemoglobin 8.1 g/dL (14.0-18.0)
[2023-08-25 06:49] LABS: #Eosinphils 0.2 thou/uL (0.0-0.7); #Monocytes 0.7 thou/uL (0.11-0.59); #Neutrophils 9.1 thou/uL (1.40-6.50); %Basophils 0.3 % (0.0-1.0); %Eosinophils 2.1 % (0.0-10.0); %Lymphocytes 9.3 % (21.0-51.0); %Monocytes 5.8 % (0.0-10.0); %Neutrophils 80.6 % (42.0-75.0); Hematocrit 24.6 % (42.0-52.0); Hemoglobin 7.7 g/dL (14.0-18.0); Mean Corpuscular HGB CONC 31.3 g/dL (32.0-36.0); Mean Corpuscular Hemoglobin 30.1 pg (27.0-31.0); Mean Corpuscular Volume 96.1 fl (78.0-98.0); Mean Platelet Volume 9.4 fL (7.4-10.4); Platelet Count 488 10x3/uL (130-400); RBC Distribution Width 17.7 % (11.5-14.5); Red Blood Cell (RBC) Count 2.56 mill/uL (4.70-6.10); White Blood Cell (WBC) Count 11.3 10x3/uL (4.8-10.8)
[2023-08-25 07:06] LABS: Vancomycin, Random 24.5 ug/mL (See Comment)
[2023-08-25 07:08] LABS: Anion Gap 11 mmol/L (10-20); BUN (Urea Nitrogen) 35 mg/dL (8.4-25.7); Calc. Creatinine Clearance 89 mL/min (70-130); Calcium 8.5 mg/dL (7.8-10.44); Carbon Dioxide 23 mmol/L (22-29); Chloride 117 mmol/L (98-107); Estimated GFR 71; Glucose 128 mg/dL (70-105); Potassium 3.6 mmol/L (3.5-5.1); Sodium 147 mmol/L (136-145)
[2023-08-25] MEDS: Famotidine 20 MG TAB PER TUBE SCH (09:22)
[2023-08-25] MEDS: Acetaminophen 500 MG TAB PO SCH (11:28)
[2023-08-25] MEDS ORDERED: traMADol HCl 50 MG TAB PO PRN (11:31)
[2023-08-25] MEDS: Furosemide 20 MG TAB PO SCH (11:36)
[2023-08-25] MEDS: traMADol HCl 50 MG TAB PO SCH (13:10)
[2023-08-25] MEDS: Labetalol HCl 100 MG/20 ML VIAL SLOW IVP PRN (13:11)
[2023-08-25] MEDS: Gabapentin 300 MG CAP PO SCH (14:18)
[2023-08-25] MEDS: LORazepam 2 MG/ML SYR.(CARPUJECT) IVP PRN (15:04)
[2023-08-25] MEDS: Sacubitril 24MG/Valsartan 26 MG TAB PO SCH (21:46)
[2023-08-25] MEDS: Vancomycin 1.5 GM in Sodium Chloride 0.9% 250 ML 300 ML IVPB SCH (22:36)
[2023-08-26] MEDS: Furosemide 20 MG TAB PO SCH (08:12)
[2023-08-26 12:59] LABS: #Basophils 0.03 10x3/uL (0.0-0.2); %Basophils 0.3 % (0.0-1.0); %Eosinophils 2.7 % (0.0-10.0); %Monocytes 6.9 % (0.0-10.0); %Neutrophils 78.7 % (42.0-75.0); Mean Corpuscular HGB CONC 30.8 g/dL (32.0-36.0); Mean Corpuscular Hemoglobin 30.4 pg (27.0-31.0); Mean Corpuscular Volume 98.9 fl (78.0-98.0); Mean Platelet Volume 8.7 fL (7.4-10.4); Platelet Count 476 10x3/uL (130-400); RBC Distribution Width 17.2 % (11.5-14.5); Red Blood Cell (RBC) Count 2.63 mill/uL (4.70-6.10)
[2023-08-26 13:15] LABS: Vancomycin, Random 16.5 ug/mL (See Comment)
[2023-08-26 13:17] LABS: Anion Gap 10 mmol/L (10-20); BUN (Urea Nitrogen) 36 mg/dL (8.4-25.7); Calc. Creatinine Clearance 97 mL/min (70-130); Calcium 8.2 mg/dL (7.8-10.44); Carbon Dioxide 22 mmol/L (22-29); Chloride 118 mmol/L (98-107); Estimated GFR 80; Glucose 117 mg/dL (70-105); Potassium 4.2 mmol/L (3.5-5.1); Sodium 146 mmol/L (136-145)
[2023-08-26 16:18] VITALS: BMI 27.8
[2023-08-26] MEDS: Cyclobenzaprine 10 MG TAB PO PRN (17:55)
[2023-08-26 20:33] VITALS: BP 126/79
[2023-08-26] MEDS: Sacubitril 24MG/Valsartan 26 MG TAB PO SCH (20:33)
[2023-08-26 20:49] VITALS: TEMP 98.6
[2023-08-26] MEDS: Vancomycin (BATCH) 1.75 GM in Premix 1 BAG IVPB SCH (21:42)
== END 2023-08-26 23:26 | DRG 4 ==
LOC: ERS 09:19 → EDBD 09:19 → CCU 11:15
PROVIDERS: ADMIT Specialist; ATTEND Specialist
PROC: 5A1955Z Respiratory Ventilation, Greater than 96 Consecutive Hours (ICD-10-PCS; principal; 2023-08-12)
PROC: 0BH17EZ Insertion of Endotracheal Airway into Trachea, Via Natural or Artificial Opening (ICD-10-PCS; 2023-08-12)
PROC: 0T9B70Z Drainage of Bladder with Drainage Device, Via Natural or Artificial Opening (ICD-10-PCS; 2023-08-12)
PROC: 0D9670Z Drainage of Stomach with Drainage Device, Via Natural or Artificial Opening (ICD-10-PCS; 2023-08-12)
PROC: 3E0G76Z Introduction of Nutritional Substance into Upper GI, Via Natural or Artificial Opening (ICD-10-PCS; 2023-08-12)
PROC: 30233N1 Transfusion of Nonautologous Red Blood Cells into Peripheral Vein, Percutaneous Approach (ICD-10-PCS; 2023-08-12)
PROC: 30233K1 Transfusion of Nonautologous Frozen Plasma into Peripheral Vein, Percutaneous Approach (ICD-10-PCS; 2023-08-12)
PROC: 4A133R1 Monitoring of Arterial Saturation, Peripheral, Percutaneous Approach (ICD-10-PCS; 2023-08-12)
PROC: 30233J1 Transfusion of Nonautologous Serum Albumin into Peripheral Vein, Percutaneous Approach (ICD-10-PCS; 2023-08-12)
PROC: 3E033XZ Introduction of Vasopressor into Peripheral Vein, Percutaneous Approach (ICD-10-PCS; 2023-08-12)
PROC: 3E03329 Introduction of Other Anti-infective into Peripheral Vein, Percutaneous Approach (ICD-10-PCS; 2023-08-12)
PROC: 0W9B30Z Drainage of Left Pleural Cavity with Drainage Device, Percutaneous Approach (ICD-10-PCS; 2023-08-18)
PROC: 0B110Z4 Bypass Trachea to Cutaneous, Open Approach (ICD-10-PCS; 2023-08-22)
PROC: 0DH68UZ Insertion of Feeding Device into Stomach, Via Natural or Artificial Opening Endoscopic (ICD-10-PCS; 2023-08-22)
DX: A41.9 Sepsis, unspecified organism (principal); J96.01 Acute respiratory failure with hypoxia; S02.91XB Unspecified fracture of skull, initial encounter for open fracture; S36.031A Moderate laceration of spleen, initial encounter; T79.4XXA Traumatic shock, initial encounter; S02.31XA Fracture of orbital floor, right side, initial encounter for closed fracture; J93.9 Pneumothorax, unspecified; S32.502A Unspecified fracture of left pubis, initial encounter for closed fracture; S32.10XA Unspecified fracture of sacrum, initial encounter for closed fracture; S22.42XA Multiple fractures of ribs, left side, initial encounter for closed fracture; I42.0 Dilated cardiomyopathy; D62 Acute posthemorrhagic anemia; N17.9 Acute kidney failure, unspecified; J98.11 Atelectasis; E87.1 Hypo-osmolality and hyponatremia; V89.2XXA Person injured in unspecified motor-vehicle accident, traffic, initial encounter; N18.9 Chronic kidney disease, unspecified; D18.1 Lymphangioma, any site; D72.829 Elevated white blood cell count, unspecified; I44.7 Left bundle-branch block, unspecified; Q89.2 Congenital malformations of other endocrine glands; Z87.891 Personal history of nicotine dependence; B96.4 Proteus (mirabilis) (morganii) as the cause of diseases classified elsewhere
CPT/HCPCS: 31500; 36415; 36416; 36430; 36600; 51702; 70450; 70486; 70498; 71045; 71260; 72125; 72170; 74177; 80048; 80053; 80202; 82140; 82550; 82805; 83605; 83735; 84100; 84145; 84478; 84484; 85025; 85049; 85300; 85362; 85384; 85610; 85730; 86850; 86900; 86901; 87040; 87070; 87077; 87186; 87205; 90471; 90714; 93005; 93306; 93970; 94002; 94003; 94640; 96374; 96375; G0390; J0171; J0295; J0360; J0665; J0690; J1100; J1630; J1940; J2001; J2060; J2150; J2250; J2272; J2371; J2405; J2543; J2704; J3010; J3370; J3370-JW; J3475; J3480; J3490; J7030; J7042; J7050; J7120; J7620; P9016; P9040; P9045; P9048; Q9967; S0028

== ENCOUNTER 2023-12-03 13:33 | Emergency (ER) | payer OTHER | END 2023-12-03 13:56 | disposition home or self-care (01) | LOC: ERS 13:33 | DX: Z00.00 Encounter for general adult medical examination without abnormal findings (principal); I11.0 Hypertensive heart disease with heart failure; I50.9 Heart failure, unspecified; Z87.891 Personal history of nicotine dependence; Z79.899 Other long term (current) drug therapy ==

== ENCOUNTER 2023-12-19 09:53 | Emergency (ER) | payer OTHER | END 2023-12-19 11:00 | disposition home or self-care (01) | LOC: ERS 09:53 | DX: Z00.00 Encounter for general adult medical examination without abnormal findings (principal); I50.9 Heart failure, unspecified | CPT/HCPCS: 99282 ==

== ENCOUNTER 2023-12-20 10:34 | Emergency (ER) | payer OTHER | END 2023-12-20 11:36 | disposition left against medical advice (07) | LOC: ERS 10:34 | DX: Z53.21 Procedure and treatment not carried out due to patient leaving prior to being seen by health care provider (principal) ==

== ENCOUNTER 2023-12-26 13:07 | Emergency (ER) | payer OTHER | END 2023-12-26 15:10 | disposition home or self-care (01) | LOC: ERS 13:07 | DX: Z46.59 Encounter for fitting and adjustment of other gastrointestinal appliance and device (principal) | CPT/HCPCS: 99282 ==

== ENCOUNTER 2024-03-08 20:22 | Emergency (ER) | payer OTHER ==
[2024-03-08] MEDS ORDERED: Nitroglycerin 50 MG/250 ML BOT 250 ML ONE (20:31)
[2024-03-08] MEDS ORDERED: Calcium Chloride 1 GM/10 ML Abboject SYRINGE ONE (20:33)
[2024-03-08] MEDS ORDERED: Sodium Bicarb 50 MEQ/50 ML Abboject 8.4% SYRINGE ONE (20:33)
[2024-03-08] MEDS ORDERED: EPINEPHrine 1 MG/10 ML Abboject SYRINGE ONE (20:33)
[2024-03-08] MEDS ORDERED: Rocuronium Bromide 10 MG/ML (10ML VIAL) ONE (20:33)
[2024-03-08] MEDS ORDERED: Etomidate 40 MG (20 mL) VIAL ONE (20:33)
[2024-03-08] MEDS ORDERED: Magnesium 5 GM/10 ML Abboject SYRINGE ONE (20:54)
== END 2024-03-08 21:12 | disposition expired ==
LOC: ERS 20:22
DX: I46.9 Cardiac arrest, cause unspecified (principal); I11.0 Hypertensive heart disease with heart failure; I50.9 Heart failure, unspecified; Z87.891 Personal history of nicotine dependence
CPT/HCPCS: 31500; 92950; 93005; 94002; J0171; J3475